=== PATIENT | male | born 1990 | race Caucasian/White ===

== ENCOUNTER 2018-09-16 20:26 | Emergency (ER) | payer SELFPAY ==
[2018-09-16] MEDS ORDERED: LIDOCAINE 1% MPF 5 ML VIAL ONE (21:54)
--- NOTE | 2018-09-16 22:20 | ER ---
Nurse's Notes [facility] Name: Mervin Bloom Age: 28 yrs Sex: Male : 1990 Arrival Date: 09/16/2018 Time: 20:29 Bed 17 Private MD: Diagnosis: Cutaneous abscess of right upper limb Presentation: 09/16 20:31 Presenting complaint: Patient states: Abscess to right arm for the past 3 days, he was aj1 seen yesterday morning at [facility], the abscess was lanced and packed and he was sent home with a Rx for Bactrim and Tylenol #3. Patient reports that he has taken 2 doses of the Bactrim but today the redness and swelling appears worse. Denies fever. Transition of care: patient was not received from another setting of care. Onset of symptoms was September 16, 2018. Risk Assessment: Do you want to hurt yourself or someone else? Patient reports no desire to harm self or others. Initial Sepsis Screen: Does the patient meet any 2 criteria? HR > 90 bpm. No. Patient's initial sepsis screen is negative. Does the patient have a suspected source of infection? Yes: Skin breakdown/wound. Care prior to arrival: None. 20:31 Method Of Arrival: Ambulatory aj1 20:31 Acuity: CHANA 4 aj1 Triage Assessment: 20:33 General: Appears in no apparent distress. comfortable, Behavior is calm, cooperative, aj1 appropriate for age. Pain: Complains of pain in palmar aspect of right forearm Pain currently is 8 out of 10 on a pain scale. Neuro: Level of Consciousness is awake, alert, obeys commands, Oriented to person, place, time, situation. Cardiovascular: Patient's skin is warm and dry. Respiratory: Airway is patent Respiratory effort is even, unlabored, Respiratory pattern is regular, symmetrical. Derm: Abscess located on palmar aspect of right forearm has purulent drainage, is red, is raised. Historical: - Allergies: 20:33 No Known Allergies; aj1 - Home Meds: 20:33 None [Active]; aj1 - PMHx: 20:33 None; aj1 - PSHx: 20:33 None; aj1 - Immunization history:: Flu vaccine is up to date. - Social history:: Smoking status: Patient uses tobacco products, smokes one-half pack cigarettes per day. - Ebola Screening: : Patient denies travel to an Ebola-affected area in the 21 days before illness onset. Screenin:34 Abuse screen: Denies threats or abuse. Denies injuries from another. Nutritional ed1 screening: No deficits noted. Tuberculosis screening: No symptoms or risk factors identified. Fall Risk None identified. Assessment: 20:34 General: Appears in no apparent distress. Behavior is calm, cooperative. Pain: ed1 Complains of pain in right arm Pain currently is 8 out of 10 on a pain scale. Quality of pain is described as throbbing, Pain began 2-3 days ago. Is continuous. Neuro: Level of Consciousness is awake, alert, obeys commands, Oriented to person, place, time, situation. Cardiovascular: Denies chest pain, Heart tones S1 S2 present. Respiratory: Airway is patent Respiratory effort is even, unlabored, Respiratory pattern is regular, symmetrical, Breath sounds are clear bilaterally. GI: Abdomen is non-distended, Bowel sounds present X 4 quads. Abd is soft and non tender X 4 quads. Reports nausea, Patient currently denies diarrhea, vomiting. : No signs and/or symptoms were reported regarding the genitourinary system. EENT: No signs and/or symptoms were reported regarding the EENT system. Derm: Skin is healthy with good turgor, Skin is dry, Skin is normal, Skin temperature is warm Abscess located on right arm is half dollar sized, is hot to touch, is red, is raised, lanced at another ER yesterday. Packing strip in place Reports pain that is 8 out of 10 on a pain scale. Musculoskeletal: Circulation, motion, and sensation intact. Range of motion: intact in all extremities. 22:00 Reassessment: No changes from previously documented assessment. Patient and/or family ed1 updated on plan of care and expected duration. Pain level reassessed. Patient is alert, oriented x 3, equal unlabored respirations, skin warm/dry/pink. Patient states symptoms have not improved. Vital Signs: 20:33 BP 132 / 82; Pulse 102; Resp 20; Temp 98.6; Pulse Ox 100% on R/A; Weight 83.91 kg (R); aj1 Height 6 ft. 0 in. (182.88 cm) (R); Pain 8/10; 22:00 BP 129 / 76; Pulse 99; Resp 22; Pulse Ox 100% on R/A; Pain 8/10; ed1 20:33 Body Mass Index 25.09 (83.91 kg, 182.88 cm) aj1 ED Course: 20:29 Patient arrived in ED. do 20:32 Triage completed. aj1 20:33 Arm band placed on Patient placed in an exam room. aj1 20:34 Patient has correct armband on for positive identification. Bed in low position. Call ed1 light in reach. Adult w/ patient. 20:37 Tessa White, RN is Primary Nurse. ed1 20:50 Red Winslow MD is Attending Physician. tw4 22:00 Assist provider with I \T\ D: of an abscess on right arm Set up I\T\D tray. Performed by ed 1 Red Winslow MD Wound packed. iodoform gauze, Dressing with ABD pad, 4X4s, tape Patient tolerated well. 22:32 Patient did not have IV access during this emergency room visit. ed1 Administered Medications: 22:13 Drug: Lidocaine (1 %) 1 amp Volume: 5 ml; Route: Infiltration; ed1 22:32 Drug: [place] 5 mg-325 mg 1 tabs Route: PO; ed1 22:32 Follow up: Response: Medication administered at discharge. ed1 Outcome: 22:19 Discharge ordered by . tw4 22:32 Discharged to home ambulatory, with significant other. ed1 22:32 Condition: good 22:32 Discharge instructions given to patient, Instructed on discharge instructions, follow up and referral plans. medication usage, wound care, Demonstrated understanding of instructions, follow-up care, medications, wound care, Prescriptions given X 1. 22:33 Patient left the ED. ed1 Signatures: Maine Edge, RN RN aj1 Tessa White, RN RN ed1 Joanne Mejia Terrence, MD MD tw4
[2018-09-16] MEDS ORDERED: HYDROCODONE/APAP 5/325 MG TAB ONE (22:41)
--- NOTE | 2018-09-17 22:43 | EDPHYS ---
Physician Documentation [facility] Name: Mervin Bloom Age: 28 yrs Sex: Male : 1990 Arrival Date: 09/16/2018 Time: 20:29 Bed 17 Private MD: ED Physician Red Winslow HPI: 09/17 04:53 This 28 yrs old Male presents to ER via Ambulatory with complaints of Arm tw4 Pain. 04:54 The patient presents with an abscess of the palmar aspect of right forearm. tw4 Description: The affected area is small, localized, draining. Onset: The symptoms/episode began/occurred. 04:54 Onset: The symptoms/episode began/occurred 3 day(s) ago. Possible cause(s): unknown. tw4 Associated signs and symptoms: The patient has no apparent associated signs or symptoms. Modifying factors: the symptoms are alleviated by nothing, the symptoms are aggravated by nothing. Severity of symptoms: At their worst the symptoms were moderate, in the emergency department the symptoms are unchanged. The patient has been recently seen by a physician: at a clinic, with similar presenting complaints, was given a prescription for antibiotics, had I\T\D of abscess. Historical: - Allergies: 09/16 20:33 No Known Allergies; aj1 - Home Meds: 20:33 None [Active]; aj1 - PMHx: 20:33 None; aj1 - PSHx: 20:33 None; aj1 - Immunization history:: Flu vaccine is up to date. - Social history:: Smoking status: Patient uses tobacco products, smokes one-half pack cigarettes per day. - Ebola Screening: : Patient denies travel to an Ebola-affected area in the 21 days before illness onset. ROS: 09/17 04:54 Constitutional: Negative for fever, chills, and weight loss, Cardiovascular: Negative tw4 for chest pain, palpitations, and edema, Respiratory: Negative for shortness of breath, cough, wheezing, and pleuritic chest pain, Abdomen/GI: Negative for abdominal pain, nausea, vomiting, diarrhea, and constipation. MS/extremity: Positive for erythema, pain, tenderness, warmth. Skin: Positive for abscess, cellulitis, erythema, Negative for Exam: 04:54 Constitutional: This is a well developed, well nourished patient who is awake, alert, tw4 and in no acute distress. Head/Face: Normocephalic, atraumatic. Chest/axilla: Normal chest wall appearance and motion. Nontender with no deformity. No lesions are appreciated. Cardiovascular: Regular rate and rhythm with a normal S1 and S2. No gallops, murmurs, or rubs. Normal PMI, no JVD. No pulse deficits. Respiratory: Lungs have equal breath sounds bilaterally, clear to auscultation and percussion. No rales, rhonchi or wheezes noted. No increased work of breathing, no retractions or nasal flaring. Abdomen/GI: Soft, non-tender, with normal bowel sounds. No distension or tympany. No guarding or rebound. No evidence of tenderness throughout. Back: No spinal tenderness. No costovertebral tenderness. Full range of motion. 04:54 MS/ Extremity: Pulses equal, no cyanosis. Neurovascular intact. Full, normal range of motion. 04:54 Skin: abscess, that is small, approximately 3 cm(s), with drainage, with fluctuance, with induration. Vital Signs: 09/16 20:33 BP 132 / 82; Pulse 102; Resp 20; Temp 98.6; Pulse Ox 100% on R/A; Weight 83.91 kg (R); aj1 Height 6 ft. 0 in. (182.88 cm) (R); Pain 8/10; 22:00 BP 129 / 76; Pulse 99; Resp 22; Pulse Ox 100% on R/A; Pain 8/10; ed1 20:33 Body Mass Index 25.09 (83.91 kg, 182.88 cm) [facility] Procedures: 09/17 04:54 I \T\ D: Incision and drainage was performed for an abscess of the right Prepped with tw4 Betadine, Anesthetized with 5 ml's 1% Lidocaine. Incised with #11 blade. Drained small amount serosanguinous fluid. Packed with iodoform gauze, Dressing: sterile 4x4 gauze, the patient tolerated the procedure well. MDM: 09/16 20:50 Patient medically screened. tw4 09/17 04:54 Differential diagnosis: abscess, cellulitis. Data reviewed: vital signs, nurses notes. tw4 Counseling: I had a detailed discussion with the patient and/or guardian regarding: the historical points, exam findings, and any diagnostic results supporting the discharge/admit diagnosis. Administered Medications: 09/16 22:13 Drug: Lidocaine (1 %) 1 amp Volume: 5 ml; Route: Infiltration; ed1 22:32 Drug: [place] 5 mg-325 mg 1 tabs Route: PO; ed1 22:32 Follow up: Response: Medication administered at discharge. ed1 Disposition: 09/16/18 22:19 Discharged to Home. Impression: Cutaneous abscess of right upper limb. - Condition is Stable. - Discharge Instructions: Skin Abscess, Incision and Drainage, Skin Abscess, [id number]. - Prescriptions for Cleocin 300 mg Oral Capsule - take 1 capsule by ORAL route every 6 hours for 10 days; 40 capsule. - Work release form, Medication Reconciliation Form, Thank You Letter, Antibiotic Education, Prescription Opioid Use form. - Follow up: Private Physician; When: Upon discharge from the Emergency Department; Reason: If symptoms return, Recheck today's complaints, Continuance of care. - Problem is new. - Symptoms have improved. Signatures: Maine Edge RN RN aj1 Tessa White RN RN ed1 Red Winslow MD MD tw4 Corrections: (The following items were deleted from the chart) 22:33 22:19 09/16/2018 22:19 Discharged to Home. Impression: Cutaneous abscess of right upper ed1 limb. Condition is Stable. Forms are Medication Reconciliation Form, Thank You Letter, Antibiotic Education, Prescription Opioid Use. Follow up: Private Physician; When: Upon discharge from the Emergency Department; Reason: If symptoms return, Recheck today's complaints, Continuance of care. Problem is new. Symptoms have improved. tw4
== END 2018-09-16 22:33 | disposition home or self-care (01) ==
LOC: ER 20:26
PROC: 0J9G0ZZ Drainage of Right Lower Arm Subcutaneous Tissue and Fascia, Open Approach (ICD-10-PCS; principal; 2018-09-16)
DX: L02.413 Cutaneous abscess of right upper limb (principal); F17.210 Nicotine dependence, cigarettes, uncomplicated
CPT/HCPCS: 99283